=== PATIENT | male | born 1965 | race Caucasian/White ===

== ENCOUNTER 2018-07-26 07:13 | Day surgery (SDC) | payer MEDICARE ==
[2018-07-26 08:31] LABS: ADD MAN DIFF? NO
[2018-07-26 08:40] LABS: WHITE BLOOD COUNT 6.9 10^3/ul (4.8-10.8)
[2018-07-26 08:40] LABS: ABNORMAL IP MESSAGE 1; BASOPHIL # 0.1 10^3/ul (0.0-0.1); BASOPHILS % 1.7 % (0.0-2.0); EOSINOPHILS # 0.4 10^3/ul (0.0-0.5); EOSINOPHILS % 5.6 % (0.0-7.0); HEMATOCRIT 33.8 % (42.0-52.0); HEMOGLOBIN 10.5 g/dl (14.0-18.0); LYMPHOCYTES # 1.9 10^3/ul (0.8-2.9); LYMPHOCYTES % 27.1 % (15.0-51.0); MEAN CORPUSCULAR HEMOGLOBIN 23.5 pg (29.0-33.0); MEAN CORPUSCULAR HGB CONC 31.1 g/dl (32.0-37.0); MEAN CORPUSCULAR VOLUME 75.6 fl (82.0-101.0); MONOCYTE # 0.5 10^3/ul (0.3-0.9); MONOCYTES % 7.1 % (0.0-11.0); NEUTROPHIL # 4.1 10^3/ul (1.6-7.5); NEUTROPHILS % 58.4 % (39.0-77.0); PLATELET COUNT 146 10^3/UL (140-415); POSITIVE DIFF @See below; RED BLOOD COUNT 4.47 10^6/ul (4.70-6.10); RED CELL DISTRIBUTION WIDTH 15.4 % (11.5-14.5)
[2018-07-26 08:52] LABS: ALANINE AMINOTRANSFERASE 20 IU/L (13-69); ALBUMIN 3.5 g/dl (3.3-4.9); ALBUMIN/GLOBULIN RATIO 1.09; ALKALINE PHOSPHATASE 103 IU/L (42-121); ANION GAP 9 (5-13); ASPARTATE AMINO TRANSFERASE 24 IU/L (15-46); CALCIUM 9.4 mg/dl (8.4-10.2); CARBON DIOXIDE 29 mmol/L (21-31); CHLORIDE 103 mmol/L (97-110); Estimated GFR 13 mL/min (>60); GLUCOSE 109 mg/dl (70-220); INR 0.91; PROTIME 12.4 Sec (11.9-14.9); SODIUM 141 mmol/L (135-144); TOTAL PROTEIN 6.7 g/dl (6.1-8.1)
[2018-07-26 08:53] LABS: PARTIAL THROMBOPLASTIN TIME 28.9 Sec (23.0-35.0)
[2018-07-26 08:56] LABS: BLOOD UREA NITROGEN 22 mg/dl (7-20)
[2018-07-26 08:57] LABS: CREATININE 4.64 mg/dl (0.61-1.24)
[2018-07-26] MEDS ORDERED: THROMBIN 5000 UNIT VIAL (09:46)
[2018-07-26] MEDS ORDERED: HEPARIN 1000 UNITS/ML 10 ML INJ (09:46)
[2018-07-26] MEDS ORDERED: LIDOCAINE 1% (MPF) 30 ML INJ (09:46)
[2018-07-26] MEDS: HEPARIN 1000 UNITS/ML 10 ML INJ IRR (09:50)
[2018-07-26] MEDS ORDERED: FENTAnyl 50 MCG/ML VIAL (10:02)
[2018-07-26] MEDS ORDERED: PROPOFOL 20 ML (10:02)
[2018-07-26] MEDS ORDERED: SEVOFLURANE 15 MIN (10:10)
[2018-07-26] MEDS ORDERED: LIDOCAINE 2% (SDV) 5 ML INJ (11:21)
[2018-07-26] MEDS ORDERED: CEFAZOLIN 1 GM INJ (11:21)
[2018-07-26] MEDS ORDERED: EPHEDrine SULFATE 50 MG/5 ML SYG IV (11:30)
[2018-07-26] MEDS ORDERED: DIPHENHYDRAMINE 50 MG INJ IV (11:30)
[2018-07-26] MEDS ORDERED: OXYCODONE/ACETAMINOPHEN (5/325) TAB PO (11:30)
[2018-07-26] MEDS ORDERED: LABETALOL HCL 20MG INJ IV (11:30)
[2018-07-26] MEDS ORDERED: FENTAnyl 50 MCG/ML VIAL IV ×3 (11:30)
[2018-07-26] MEDS ORDERED: METOCLOPRAMIDE 10 MG INJ IV (11:30)
[2018-07-26] MEDS ORDERED: ALBUTEROL 0.083% (NEB) 2.5 MG/3 ML AMP HHN (11:30)
[2018-07-26] MEDS ORDERED: KETOROLAC 30 MG INJ IV (11:30)
[2018-07-26] MEDS ORDERED: HYDROmorphONE 1 MG/5 ML IV SYRINGE IV (11:30)
[2018-07-26] MEDS ORDERED: MEPERIDINE 25 MG INJ IV (11:30)
[2018-07-26] MEDS: HYDROmorphONE 1 MG/5 ML IV SYRINGE IV ×2 (11:46→11:54)
[2018-07-26] MEDS: ONDANSETRON 4 MG INJ IV (11:46)
[2018-07-26] MEDS: OXYCODONE/ACETAMINOPHEN (5/325) TAB PO ×3 (12:18→13:40)
[2018-07-26] MEDS: hydrALAzine 20 MG INJ IV (12:21)
== END 2018-07-26 14:00 | disposition home or self-care (01) ==
LOC: SDS 07:13
DX: I12.0 Hypertensive chronic kidney disease with stage 5 chronic kidney disease or end stage renal disease (principal); N18.6 End stage renal disease; E11.9 Type 2 diabetes mellitus without complications; I25.10 Atherosclerotic heart disease of native coronary artery without angina pectoris
CPT/HCPCS: 36819; 71045; 80053; 82962; 85025; 85610; 85730; 93005